=== PATIENT | male | born 1990 | race African-American/Black ===

== ENCOUNTER 2018-10-14 07:37 | Emergency (ER) | payer MEDICAID ==
[~2018-10-14] VITALS: Ht 177.8 cm; Wt 77.0 kg
[2018-10-14] MEDS ORDERED: SODIUM CHLORIDE 0.9% 1,000 ML IV ONE (08:25)
[2018-10-14 09:57] LABS: BASOPHILS % 0.6 % (0.0-2.0); EOSINOPHILS % 0.1 % (0.0-5.0); HEMATOCRIT. 44.5 % (42.0-52.0); HEMOGLOBIN. 14.2 g/dL (14.0-18.0); LYMPHOCYTES % 16.9 % (20.0-50.0); MEAN CORPUSCULAR HEMOGLOBIN 22.2 pg (28.0-32.0); MEAN CORPUSCULAR VOLUME 69.3 fL (80.0-94.0); MEAN PLATELET VOLUME 9.1 fl (7.4-10.4); MONOCYTES % 8.7 % (2.0-8.0); NEUTROPHILS % 73.7 % (40.0-76.0); PLATELET 187 x1000/uL (130-400); RED BLOOD CELL COUNT 6.42 mill/uL (4.7-6.1); RED CELL DISTRIBUTION WIDTH 16.4 % (11.6-14.6)
[2018-10-14 10:02] LABS: CHLORIDE 103 mEq/L (98-107)
[2018-10-14 10:06] LABS: ETHANOL BLOOD < 10 mg/dL
[2018-10-14 10:13] LABS: *AMPHETAMINES SCREEN URINE NEGATIVE (NEGATIVE); *BARBITURATES SCREEN URINE NEGATIVE (NEGATIVE); *BENZODIAZEPINES SCREEN URINE NEGATIVE (NEGATIVE)
[2018-10-14 10:14] LABS: *COCAINE SCREEN URINE PRESUMTIVE POSITIVE (NEGATIVE); CANNABINOID URINE SCREEN PRESUMTIVE POSITIVE (NEGATIVE); METHADONE URINE SCREEN NEGATIVE (NEGATIVE); OPIATES URINE SCREEN NEGATIVE (NEGATIVE); PHENCYCLIDINE URINE SCREEN NEGATIVE (NEGATIVE)
[2018-10-14 10:22] LABS: PLATELET ESTIMATE NORMAL
[2018-10-14 11:33] VITALS: BP 125/75
== END 2018-10-14 11:40 | disposition home or self-care (01) ==
LOC: ER 07:37
DX: R42 Dizziness and giddiness (principal); F14.10 Cocaine abuse, uncomplicated; F12.10 Cannabis abuse, uncomplicated; R03.0 Elevated blood-pressure reading, without diagnosis of hypertension
CPT/HCPCS: 36415; 71045; 80053; 80305; 80320; 85025; 93005; 96360; 96361; 99284; J7030; G0480

== ENCOUNTER 2019-01-26 19:06 | Emergency (ER) | payer MEDICAID ==
[~2019-01-26] VITALS: Ht 177.8 cm; Wt 90.0 kg
[2019-01-26 19:58] VITALS: BP 169/95
== END 2019-01-26 22:30 | disposition left against medical advice (07) ==
LOC: ER 19:06
DX: R07.9 Chest pain, unspecified (principal); Z53.21 Procedure and treatment not carried out due to patient leaving prior to being seen by health care provider
CPT/HCPCS: 93005

== ENCOUNTER 2019-02-10 09:24 | Emergency (ER) | payer MEDICAID | END 2019-02-10 10:16 | disposition left against medical advice (07) | LOC: ER 10:15 | DX: Z53.21 Procedure and treatment not carried out due to patient leaving prior to being seen by health care provider (principal) ==

== ENCOUNTER 2019-07-09 12:02 | Emergency (ER) | payer MEDICAID ==
[~2019-07-09] VITALS: Ht 180.3 cm; Wt 83.0 kg
[2019-07-09] MEDS ORDERED: ACETAMINOPHEN WITH CODEINE 300/30MG TABLET PO ONE (12:45)
[2019-07-09 13:24] LABS: CLARITY URINE CLEAR (CLEAR); COLOR URINE YELLOW (YELLOW); KETONES URINE NEGATIVE (NEGATIVE); LEUKOCYTE ESTERASE URINE 2+ (NEGATIVE); NITRITE URINE POSITIVE (NEGATIVE); OCCULT BLOOD URINE NEGATIVE (NEGATIVE); PROTEIN URINE TRACE (NEGATIVE); SPECIFIC GRAVITY URINE 1.022 (1.005-1.030)
[2019-07-09] MEDS ORDERED: AZITHROMYCIN 500 MG TABLET PO ONE (13:45)
[2019-07-09] MEDS ORDERED: CEFTRIAXONE SODIUM 250 MG/VIAL IM ONE (13:45)
[2019-07-09 14:01] VITALS: BP 128/63
== END 2019-07-09 14:05 | disposition home or self-care (01) ==
LOC: ER 12:02
DX: N45.1 Epididymitis (principal); R03.0 Elevated blood-pressure reading, without diagnosis of hypertension
CPT/HCPCS: 76870; 81003; 87077; 87086; 87186; 93976; 96372; 99284; J0696

== ENCOUNTER 2020-01-15 18:33 | Emergency (ER) | payer MEDICAID ==
[~2020-01-15] VITALS: Ht 177.8 cm; Wt 87.0 kg
[2020-01-15] MEDS ORDERED: LORAZEPAM 2MG/ML CPJ IV STA (18:44)
[2020-01-15] MEDS ORDERED: SODIUM CHLORIDE 0.9% 1,000 ML IV ONE (18:45)
[2020-01-15 21:36] LABS: BASOPHILS % 0.8 % (0.0-2.0); EOSINOPHILS % 4.4 % (0.0-5.0); HEMATOCRIT. 41.2 % (42.0-52.0); LYMPHOCYTES % 20.3 % (20.0-50.0); MEAN CORPUSCULAR VOLUME 69.8 fL (80.0-94.0); MEAN PLATELET VOLUME 8.9 fl (7.4-10.4); MONOCYTES % 9.7 % (2.0-8.0); NEUTROPHILS % 64.8 % (40.0-76.0); PLATELET 211 x1000/uL (130-400); RED CELL DISTRIBUTION WIDTH 17.6 % (11.6-14.6)
[2020-01-15 21:42] LABS: CHLORIDE 106 mEq/L (98-107)
[2020-01-15 21:51] LABS: ETHANOL BLOOD < 10 mg/dL
[2020-01-15 22:34] LABS: PLATELET ESTIMATE NORMAL
[2020-01-15 23:06] LABS: CLARITY URINE CLEAR (CLEAR); COLOR URINE YELLOW (YELLOW); KETONES URINE NEGATIVE (NEGATIVE); LEUKOCYTE ESTERASE URINE NEGATIVE (NEGATIVE); NITRITE URINE NEGATIVE (NEGATIVE); OCCULT BLOOD URINE NEGATIVE (NEGATIVE); PH URINE 7.5 (4.5-8.0); PROTEIN URINE 1+ (NEGATIVE); SPECIFIC GRAVITY URINE 1.014 (1.005-1.030)
[2020-01-15 23:18] LABS: *BARBITURATES SCREEN URINE NEGATIVE (NEGATIVE); *BENZODIAZEPINES SCREEN URINE PRESUMTIVE POSITIVE (NEGATIVE); *COCAINE SCREEN URINE PRESUMTIVE POSITIVE (NEGATIVE)
[2020-01-15 23:19] LABS: *AMPHETAMINES SCREEN URINE NEGATIVE (NEGATIVE); CANNABINOID URINE SCREEN NEGATIVE (NEGATIVE); METHADONE URINE SCREEN NEGATIVE (NEGATIVE); OPIATES URINE SCREEN NEGATIVE (NEGATIVE); PHENCYCLIDINE URINE SCREEN NEGATIVE (NEGATIVE)
[2020-01-16 00:20] VITALS: BP 109/55
== END 2020-01-16 01:13 | disposition home or self-care (01) ==
LOC: ER 19:22
DX: F15.188 Other stimulant abuse with other stimulant-induced disorder (principal); F16.188 Hallucinogen abuse with other hallucinogen-induced disorder; R03.0 Elevated blood-pressure reading, without diagnosis of hypertension
CPT/HCPCS: 36415; 70450; 80053; 80305; 80320; 81003; 82962; 85025; 96360; 96361; 99284; J7030; G0480

== ENCOUNTER 2020-04-20 04:42 | Emergency (ER) | payer MEDICAID ==
[~2020-04-20] VITALS: Ht 177.8 cm; Wt 100.0 kg
[2020-04-20 06:30] VITALS: BP 135/69
== END 2020-04-20 07:32 | disposition left against medical advice (07) ==
LOC: ER 04:42
DX: F10.129 Alcohol abuse with intoxication, unspecified (principal); F19.10 Other psychoactive substance abuse, uncomplicated; V49.88XA Car occupant (driver) (passenger) injured in other specified transport accidents, initial encounter; Y93.89 Activity, other specified; Y92.89 Other specified places as the place of occurrence of the external cause; Y99.8 Other external cause status
CPT/HCPCS: 99283